=== PATIENT | male | born 1990 | race Caucasian/White ===

== ENCOUNTER 2023-09-12 18:18 | Emergency (ER) | payer SELFPAY ==
[~2023-09-12] VITALS: Ht 157.5 cm; Wt 72.0 kg
[2023-09-12 18:52] VITALS: TEMP 98.6; O2SAT 99
[2023-09-12] MEDS: FENTANYL CITRATE/PF 50MCG/ML 2ML VIAL IV ONE (19:21)
[2023-09-12 19:43] VITALS: BP 138/96; PULSE 74; RESP 20
[2023-09-12] MEDS ORDERED: NAPR-1129 MT (19:54)
== END 2023-09-12 20:25 | disposition home or self-care (01) ==
LOC: ER 18:18
DX: S43.004A Unspecified dislocation of right shoulder joint, initial encounter (principal); G89.11 Acute pain due to trauma; W18.39XA Other fall on same level, initial encounter; Y93.89 Activity, other specified; Y92.89 Other specified places as the place of occurrence of the external cause; Y99.8 Other external cause status
CPT/HCPCS: 99284; 23650; 96374; 73030; J3010